=== PATIENT | male | born 1960 | race Caucasian/White ===

== ENCOUNTER 2016-12-15 10:41 | Emergency (ER) | payer MEDICAID ==
[~2016-12-15] VITALS: Ht 175.3 cm; Wt 90.9 kg
[2016-12-15] MEDS ORDERED: ASPI81 PO (10:51)
[2016-12-15 10:57] LABS: GLUCOSE,POINT OF CARE 209 MG/DL (70-110)
[2016-12-15 11:58] LABS: APPEARANCE,URINE CLOUDY (CLEAR); GLUCOSE, URINE (UA) >=1000 mg/dL (NEGATIVE); KETONES,URINE NEGATIVE (NEGATIVE); LEUKOCYTE ESTERASE ,URINE MODERATE (NEGATIVE); OCCULT BLOOD,URINE MODERATE (NEGATIVE); PROTEIN,URINE POS 1+ (NEGATIVE)
[2016-12-15 12:07] LABS: EOSINOPHILS % (AUTO) 0.8 % (1.0-6.0); LYMPHOCYTES # (AUTO) 1.3 K/uL (1.0-4.8); MEAN CORPUSCULAR HEMOGLOBIN 31.9 pg (26.0-34.0); MEAN CORPUSCULAR HGB CONC 35.1 G/dL (31.0-37.0); MEAN CORPUSCULAR VOLUME 91 fL (80-100); MONOCYTES # (AUTO) 0.6 K/uL (0.1-1.0); MONOCYTES % (AUTO) 6.1 % (2.0-9.0); NEUTROPHILS # (AUTO) 7.2 K/uL (1.8-7.7); NEUTROPHILS % (AUTO) 79.1 % (40.0-70.0); PLATELET COUNT (AUTO) 151 K/uL (150-450); RED CELL DISTRIBUTION WIDTH 13.5 % (11.5-14.5); WHITE BLOOD COUNT (AUTO) 9.1 K/uL (4.5-11.0)
[2016-12-15 12:08] LABS: ADD UA MICROSCOPIC YES
[2016-12-15 12:11] LABS: RBC,URINE 0-2 /HPF (0-2); SQUAMOUS EPITHELIAL CELL,UR Few /LPF (None Seen); WBC,URINE 51-100 /HPF (0-5)
[2016-12-15 12:29] LABS: ANION GAP 9 mmol/L (8-16); CALCIUM, TOTAL 8.9 mg/dL (8.8-10.5); CARBON DIOXIDE 27 mmol/L (22-29); CHLORIDE 103 mmol/L (98-107); CREATININE 1.16 mg/dL (0.60-1.30); GLOMERULAR FILTR. RATE CALC > 60 mL/min (>60); POTASSIUM 4.3 mmol/L (3.5-5.1); SODIUM SERUM 139 mmol/L (136-145); UREA NITROGEN, BLOOD 11 mg/dL (7-18)
[2016-12-15 12:37] LABS: ALANINE AMINOTRANSFERASE 46 U/L (12-78); ASPARTATE AMINOTRANSFERASE 21 U/L (15-37); BILIRUBIN,TOTAL 0.5 mg/dL (0.1-1.0); TOTAL PROTEIN, SERUM 7.2 g/dL (6.4-8.2)
[2016-12-15 12:42] LABS: ALBUMIN 3.4 g/dL (3.4-5.0)
[2016-12-15] MEDS ORDERED: LEVOFLOXACIN 500 MG TABLET PO ONE (13:45)
[2016-12-15] MEDS ORDERED: LIDOCAINE HCL/PF 1% 2 ML VIAL IM ONE (13:45)
[2016-12-15] MEDS ORDERED: CefTRIAXone SODIUM 1 GM/VIAL IM ONE (13:45)
[2016-12-15] MEDS ORDERED: KETOROLAC TROMETHAMINE 60 MG/2 ML VIAL IM ONE (13:45)
[2016-12-15 14:14] VITALS: BP 150/80
== END 2016-12-15 14:23 | disposition home or self-care (01) ==
LOC: EMS 10:43
DX: N45.1 Epididymitis (principal); Z88.0 Allergy status to penicillin; Z91.018 Allergy to other foods; Z72.89 Other problems related to lifestyle
CPT/HCPCS: 36415; 76870; 80053; 81001; 82962; 85025; 87077; 87086; 87186; 96372; 99285; J0696; J1885; J3490